=== PATIENT | female | born 2000 | race Caucasian/White ===

== ENCOUNTER 2022-12-13 22:42 | Emergency (ER) | payer MEDICAID ==
[~2022-12-13] VITALS: Ht 157.5 cm; Wt 59.0 kg
[2022-12-13 23:29] VITALS: BP 102/62; PULSE 62; RESP 16; TEMP 97.5; O2SAT 100
--- NOTE | 2022-12-13 23:35 | NUR ---
TO LOBBY FOLLOWING TRIAGE
--- NOTE | 2022-12-14 00:27 | NUR ---
PT AMBULATED TO BED 1
--- NOTE | 2022-12-14 01:00 | NUR ---
pt resting on bed, a/ox4. not in distress. chest rise and fall symmetrical. on monitor. oriented to call light and within reach. bed locked lowest position. side rails x2 for safety. placed on moderate high back rest.
[2022-12-14 01:06] LABS: APPEARANCE,URINE CLEAR (CLEAR); BILIRUBIN,URINE NEGATIVE (NEGATIVE); BLOOD, URINE 1+ (NEGATIVE); COLOR,URINE YELLOW (YELLOW); LEUKOCYTE ESTERASE ,URINE 2+ (NEGATIVE); NITRITE, URINE POSITIVE (NEGATIVE); UGLUCOSE NEGATIVE (NEGATIVE)
[2022-12-14 01:09] LABS: BASOPHILS % (AUTO) 0.4 % (0.0-2.0); EOSINOPHILS # (AUTO) 0.1 K/uL (0-0.4); EOSINOPHILS % (AUTO) 1.1 % (0.0-4.0); HEMATOCRIT 39.1 % (36-48); HEMOGLOBIN 12.9 g/dL (12.0-16.0); LYMPHOCYTES # (AUTO) 2.7 K/uL (2.5-16.5); LYMPHOCYTES % (AUTO) 19.9 % (20.5-51.1); MEAN CORPUSCULAR HEMOGLOBIN 29 pg (27-31); MEAN CORPUSCULAR HGB CONC 33 g/dL (33-37); MEAN CORPUSCULAR VOLUME 87.7 fL (80-94); MONOCYTES # (AUTO) 0.9 K/uL (0.8-1.0); MONOCYTES % (AUTO) 6.8 % (1.7-9.3); NEUTROPHILS # (AUTO) 9.9 K/uL (1.8-7.7); NEUTROPHILS % (AUTO) 71.8 % (42.2-75.2); PLATELET COUNT (AUTO) 343 K/uL (140-450); RED BLOOD CELL COUNT(AUTO) 4.46 MIL/uL (4.20-5.40); RED CELL DISTRIBUTION WIDTH 12.8 % (11.6-13.7); WHITE BLOOD COUNT (AUTO) 13.8 K/uL (4.8-10.8)
[2022-12-14 01:17] LABS: RBC,URINE 0-5 /HPF (0-5)
[2022-12-14 01:25] LABS: ALBUMIN 4.6 g/dL (3.4-5.0); ANION GAP 13.4 (8-16); CARBON DIOXIDE 28.4 mmol/L (21-32); CREATININE 0.6 mg/dL (0.6-1.3); POTASSIUM 3.8 mmol/L (3.5-5.1); TOTAL BILIRUBIN 0.4 mg/dL (0.0-1.0)
[2022-12-14] MEDS ORDERED: cefTRIAXone 2,000 MG in DEXTROSE 5% 100 ML IV ONE (02:35)
[2022-12-14] MEDS ORDERED: cefTRIAXone 2,000 MG VIAL ONE (02:47)
--- NOTE | 2022-12-14 03:00 | NUR ---
pt resting on bed, a/ox4. not in distress. chest rise and fall symmetrical. on monitor.
--- NOTE | 2022-12-14 04:20 | NUR ---
PT MOVED TO BED 05.
[2022-12-14 06:32] VITALS: BP 104/62; PULSE 64; RESP 16; TEMP 97.5; O2SAT 100
[2022-12-14] MEDS ORDERED: NAPR-54 PO (07:06)
[2022-12-14] MEDS ORDERED: CIPR500T4 PO (07:06)
--- NOTE | 2022-12-14 07:10 | NUR ---
Patient discharged with v/s stable. Written and verbal after care instructions given and explained. Patient alert, oriented and verbalized understanding of instructions. Ambulatory with steady gait. All questions addressed prior to discharge. ID band removed. Patient advised to follow up with PMD. Rx of CIPRO AND NAPROXEN given. Opportunity to ask questions provided and answered.
== END 2022-12-14 07:10 | disposition home or self-care (01) ==
LOC: MED 22:42
DX: N10 Acute pyelonephritis (principal); Z98.890 Other specified postprocedural states; Z79.1 Long term (current) use of non-steroidal anti-inflammatories (NSAID); Z79.2 Long term (current) use of antibiotics
CPT/HCPCS: 36415; 74176; 80053; 81001; 81025; 85025; 87040; 87086; 96365; 99285; J0696